=== PATIENT | female | born 1945 | race American Indian/Alaskan Native ===

== ENCOUNTER 2020-12-31 11:13 | Day surgery (SDC) | payer MEDICARE ==
[~2020-12-31 11:13] MED LIST: SODIUM CHLORIDE 0.9% 1000 ML 1,000 ML IV SCH
--- NOTE | 2020-12-31 13:56 | Anesthesia Day of Surgery ---
Anesthesia Day of Surgery - Day of Surgery Patient Examined: Yes Patient H&P Reviewed: Yes Patient is NPO: Yes
--- NOTE | 2020-12-31 13:57 | Anesthesia Consultation ---
Anesthesia Consult and Med Hx Date of service: 12/31/20 - Airway Anesthetic Teeth Evaluation: Edentulous ROM Head & Neck: Adequate Mental/Hyoid Distance: Adequate Mallampati Class: Class I Intubation Access Assessment: Good - Pre-Operative Health Status ASA Pre-Surgery Classification: ASA2 Proposed Anesthetic Plan: MAC - Cardiovascular System Hx Hypertension: Yes - Central Nervous System Hx Neuromuscular Disorder: Yes (Dementia) - Gastrointestinal Hx Gastroesophageal Reflux Disease: No (Recent hospital for GI bleed) - Other Systems Hx Obesity: No
[2020-12-31] MEDS ORDERED: propofoL 200 MG/20 ML VIAL IV ONE ×2 (14:14→14:31)
--- NOTE | 2020-12-31 15:19 | Procedure Note ---
Date of procedure: 12/31/20 Pre-op diagnosis: H/O Left Colon Lesion Post-op diagnosis: other (Proximal, Descending Colon Lesion/Two Transverse Colon Polyps removed by Hot,Snare Polypectomy and retrieved ( one using a Madden Net)/Minor,Left Colon diverticuli and Minor Internal Hemorrhoids.) Procedure: Colonoscopy with Hot Snare Poypectomy and use of Madden Net and reintroduction of the Colonoscope to the Cecum and Cold Biopsy and Tattoed with 4 cc of Richa Ink Anesthesia: MAC Surgeon: ANSHUL ALAMO Estimated blood loss: minimal Pathology: list Specimen disposition: to lab Condition: stable Disposition: same day (Avoid aspirin and NSAID for 5 days; otherwise resume home medication and clear liquid diet for today, and F/U in 1 to 2 weeks ([phone]).)
--- NOTE | 2020-12-31 15:25 | Operative Report ---
DATE OF SURGERY: 12/31/2020 PROCEDURE: Colonoscopy with hot snare polypectomy, use of a Madden net, cold biopsy and Richa ink injection. INDICATIONS: This is a 75-year-old -[place] female who a few months previously was admitted to another hospital with GI bleeding. Colonoscopy at that time showed that the patient possibly had a left colon lesion. Visualization was not very good at the time. 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 Repeat colonoscopy was done to take a better look at the colon with a better prep. DESCRIPTION OF PROCEDURE: Procedure was done after getting informed consent with MAC anesthesia. Initial rectal exam was unremarkable. Instrument was passed through the rectum onto the cecum, which was identified by the ileocecal valve and appendiceal orifice. The cecum, ascending colon showed normal mucosa. In the proximal transverse colon, there was a 12-13 mm sessile polyp that was removed by hot snare polypectomy and retrieved. In the distal transverse, there was probably 15 mm polyp that was again removed with a hot snare polypectomy and had to be retrieved using a Madden net. The scope was reintroduced and passed to the cecum after reintroduction, since the initial polyp was removed as the scope was being advanced to the cecum and the cecum had not been reached. In the descending colon, close to the splenic flexure, there was large lesions noted. This was probably the lesion that was previously seen in the not as well-prepped colon and multiple biopsies were done from this area. The area was also tattooed with 4 mL of Richa ink. No other pathology was noted distal to it and the rectum showed some minor internal hemorrhoid. ASSESSMENT: History of left colon lesion, which was again noted in the descending colon close to the hepatic flexure that was biopsied and tattooed with 4 mL of Richa ink. Two colon polyps in the transverse colon that were removed by hot snare polypectomy and retrieved. Minor diverticula in the left colon and minor internal hemorrhoid. The patient will be asked to stay on a clear liquid diet for today. Avoid aspirin and aspirin-related products. Follow up in the office in 1-2 weeks' time. The patient is likely to be referred to a surgeon for resection of the left colon lesion and a CEA level will also be done as an outpatient. Procedure was done in the GI lab with the assistance of the GI lab team, which included the GI nurse, the mechanical tech and with assistance of anesthesia. TID: [id number] RECEIPT: [id number] DAVID/BOBBI
--- NOTE | 2020-12-31 17:00 | Post Anesthesia Evaluation ---
- Post Anesthesia Evaluation Patient Participated: Yes Airway Patent: Yes Stable Respiratory Function: Yes Nausea/Vomiting: No Temp > 96.8F: Yes Pain Manageable: Yes Adequeate Hydration: Yes Anesthesia Complications: No Block Receding Appropriately: Not Applicable Patient on Ventilator: No
[2020-12-31 22:11] VITALS: BP 137/84
== END 2020-12-31 17:08 | disposition home or self-care (01) ==
LOC: GIO 11:13
DX: Z09 Encounter for follow-up examination after completed treatment for conditions other than malignant neoplasm (principal); K63.5 Polyp of colon; K57.30 Diverticulosis of large intestine without perforation or abscess without bleeding; K64.8 Other hemorrhoids; I10 Essential (primary) hypertension; F03.90 Unspecified dementia, unspecified severity, without behavioral disturbance, psychotic disturbance, mood disturbance, and anxiety; Z79.899 Other long term (current) drug therapy; Z98.890 Other specified postprocedural states
CPT/HCPCS: 45380; 45381; 45385; 88305; J2704; J7030

== ENCOUNTER 2021-06-03 09:51 | Day surgery (SDC) | payer MEDICARE ==
--- NOTE | 2021-06-03 11:19 | Anesthesia Consultation ---
Anesthesia Consult and Med Hx Date of service: 06/03/21 - Airway Anesthetic Teeth Evaluation: Good ROM Head & Neck: Adequate Mental/Hyoid Distance: Adequate Mallampati Class: Class I - Pulmonary Exam CTA: Yes - Pre-Operative Health Status ASA Pre-Surgery Classification: ASA2 Proposed Anesthetic Plan: MAC - Pulmonary Hx Smoking: No Hx Asthma: No Hx Respiratory Symptoms: No Hx Sleep Apnea: No - Cardiovascular System Hx Hypertension: Yes Hx Heart Attack/AMI: No Hx Angina: No Hx Peripheral Vascular Disease: No - Central Nervous System Hx Neuromuscular Disorder: Yes (Dementia) Hx Seizures: No Hx Psychiatric Problems: Yes (Anxiety/Depression) - Gastrointestinal Hx Gastroesophageal Reflux Disease: No (Recent hospital for GI bleed) - Endocrine Hx Renal Disease: No Hx Liver Disease: No Hx Insulin Dependent Diabetes: No Hx Non-Insulin Dependent Diabetes: No Hx Thyroid Disease: No - Other Systems Hx Alcohol Use: No Hx Substance Use: No Hx Cancer: Yes (Breast) Hx Obesity: No
--- NOTE | 2021-06-03 11:20 | Anesthesia Day of Surgery ---
Anesthesia Day of Surgery - Day of Surgery Patient Examined: Yes Patient H&P Reviewed: Yes Patient is NPO: Yes Beta Blockers: No Cardiac Clearance: No Pulmonary Clearance: No
[2021-06-03] MEDS ORDERED: LIDOCAINE MPF (2%) 20 MG/1 ML VIAL 5 ML ONE (12:15)
[2021-06-03] MEDS ORDERED: propofoL 200 MG/20 ML VIAL IV ONE ×2 (12:15→12:41)
[2021-06-03] MEDS ORDERED: EPINEPHrine 1 MG/10 ML SYRINGE ONE (12:38)
--- NOTE | 2021-06-03 13:08 | Procedure Note ---
Date of procedure: 06/03/21 Pre-op diagnosis: H/O Large Colon Polyp Descending Colon-Tubular Adenoma Post-op diagnosis: other (Large, dexcending colon Polyp (removed in a 'piece meal' fashion by Hot Snare polypectomy and Injected 4cc of Epinephrine to the Polypectomy site)/ Moderate,left Colon diverticuli/Mild to moderate Internal Hemorrhoids) Procedure: Colonoscopy with Hot Anare Polypectomy and Injection of 4cc of Epinephrine at the Polypectomy site Anesthesia: MAC Surgeon: ANSHUL ALAMO Estimated blood loss: 50-100ml Pathology: list Specimen disposition: to lab Condition: stable Disposition: same day (Avoid aspirin,NSAID and anticoagulants for 10 days. Encourage fiber intake after 1 week. Resume other previous medication and F/U in 1 to 2 weeks ([phone]).)
[2021-06-03 14:41] LABS: Hemoglobin 13.5 gm/dl (10.1-14.3)
--- NOTE | 2021-06-03 15:59 | Post Anesthesia Evaluation ---
- Post Anesthesia Evaluation Patient Participated: Yes Airway Patent: Yes Stable Respiratory Function: Yes Nausea/Vomiting: No Temp > 96.8F: Yes Pain Manageable: Yes Adequeate Hydration: Yes Anesthesia Complications: No
[2021-06-03 16:11] VITALS: BP 104/63
--- NOTE | 2021-06-03 16:37 | Operative Report ---
DATE OF SURGERY: 06/03/2021 PROCEDURE: Colonoscopy with hot snare polypectomy and injection of 4 mL of epinephrine at the polypectomy site. INDICATIONS: This is a 75-year-old -[place] female who has a prior history of a large colon polyp as well as multiple colon polyps that were removed in the past. Because one of the large polyps, which was in the descending colon was removed in a piecemeal fashion, repeat colonoscopy was done in an attempt to remove the remainder of the polyp. DESCRIPTION OF PROCEDURE: Procedure was done after getting informed consent with MAC anesthesia. Initial rectal examination was unremarkable. The instrument was passed through the rectum onto the cecum, which was identified with ileocecal valve and appendiceal orifice. Visualization was fair to good. Cecum, ascending colon, transverse colon showed normal mucosa. There were few scattered diverticula in the left colon. In the proximal descending colon close to the splenic flexure, there was a large polyp that was lobulated and was removed again in a piecemeal fashion with large portions of it that were removed by hot snare polypectomy. There was some bleeding from the polypectomy site and there was 4 mL of epinephrine injected to the site with slowing down of the bleeding. Large portions of the polyp were retrieved. The remaining part of the left colon only showed a few scattered diverticula and [id number] internal hemorrhoid on the retroverted view in the rectum. ASSESSMENT AND PLAN: History of a large descending colon polyp removed in a piecemeal fashion, some bleeding from the polypectomy site with injection of epinephrine, 4 mL at the polypectomy site. Moderate left colon diverticula. [id number] internal hemorrhoids. The patient will be asked to avoid aspirin and aspirin-related products for the next few days. Possibly encourage to take fiber supplements after a week. If there is excessive bleeding, the patient will be asked to come back to the hospital and follow up in the office in 1-2 weeks' time. Repeat colonoscopy will probably need to be done within 6 months to a year to remove any remnant of the polyp that may there. Again, procedure was done in the GI lab with assistance of the GI lab team, which included the GI nurse, the device repair technician and with assistance of anesthesia. TID: [id number] RECEIPT: [id number] DAVID/MANA/SARAH
== END 2021-06-03 15:25 | disposition home or self-care (01) ==
LOC: GIO 09:51
DX: Z12.11 Encounter for screening for malignant neoplasm of colon (principal); D12.4 Benign neoplasm of descending colon; K63.89 Other specified diseases of intestine; K64.8 Other hemorrhoids; K57.30 Diverticulosis of large intestine without perforation or abscess without bleeding; F41.9 Anxiety disorder, unspecified; I10 Essential (primary) hypertension; F32.9 Major depressive disorder, single episode, unspecified; Z86.010 Personal history of colon polyps; Z85.3 Personal history of malignant neoplasm of breast
CPT/HCPCS: 36415; 45385; 85014; 85018; 88305; J0171; J2704; J3490; J7030; J7120; Q0162